=== PATIENT | female | born 1985 | race Caucasian/White ===

== ENCOUNTER 2018-05-30 16:32 | Emergency (ER) | payer OTHER, SELFPAY ==
[2018-05-30 16:48] VITALS: BP 124/81; PULSE 75; RESP 18; TEMP 36.6; O2SAT 99
--- NOTE | 2018-05-31 11:16 | PDOC.ERCMPRO ---
Care Management Progress Note 05/31-Jessy left without being seen on 05/30 at 1736. This CM called Jessy at 11:15, 05/31 and left a voice message with this CM's contact information for her to call back for assistance.
== END 2018-05-30 17:36 ==
LOC: ER 17:15
PROVIDERS: Emergency Provider Physician Assistant; PCP Neuromusculoskeletal Medicine & OMM
DX: K08.89 Other specified disorders of teeth and supporting structures (principal); Z53.21 Procedure and treatment not carried out due to patient leaving prior to being seen by health care provider

== ENCOUNTER 2018-07-21 13:59 | Emergency (ER) | payer OTHER, SELFPAY ==
[2018-07-21 14:03] VITALS: BP 122/76; PULSE 78; RESP 20; TEMP 36.9; O2SAT 99
--- NOTE | 2018-07-21 15:16 | ED.GENADUL_ITS ---
Discharge Plan Disposition Patient Disposition: HOME Condition: Good Discharge Details Chief Complaint: RashLesion Clinical Impression: Cyst of face Primary Care Provider: Kenneth Lincoln ED Provider: Kirk Oconnell Home Meds and New Rx's Prescriptions: Continued valacyclovir [Valtrex] 500 MG tablet 500 mg PO DAILY Qty: 90 RF: 3 ibuprofen 600 mg tablet 600 mg PO Q6H PRN PRN (Reason: dental pain) Qty: 30 RF: 0 acetaminophen [Tylenol] 325 MG tablet 325 - 1,300 mg PO PRN PRNRF: 0 Discontinued oxycodone-acetaminophen [Percocet] 5-325 mg tablet 1 tab PO Q8H MDD 3 PRN (Reason: pain) Qty: 10 RF: 0 Discharge Instructions Instructions: Cyst (ED) Additional Instructions: If you notice any redness, significant increase in size, fever chills you should return to emergency department for reevaluation. Otherwise contact ENT office for arrangement of follow-up appointment and further treatment of your cyst. Referrals: Brando Kyle DO [OSTEOPATHIC DOCTOR] - (Please call the office for arrangement of follow-up appointment. ) Kenneth Lincoln [Primary Care Provider] - (As needed for reassessment) Discharge Data Discharge Date/Time-TO BE ENTERED AT DEPARTURE: 07/21/18 15:30 Medical Decision Making Patient presenting to the emergency department for chief complaint of swelling to the left bridge of her nose. Patient has what appears to be a cyst to this area but she states that she was able to express some fluid couple days ago. Patient consented to needle drainage otherwise this does not look like an abscess from what I can tell. Was cleansed with chlorhexidine and use topical freeze spray and inserted a 21-gauge needle. No fluid was able to be expressed nor did any drain afterwards. Concern for cyst that will need removal. Atte mpted to contact Dr. Kyle or his PA for arrangement of follow-up appointment but no one was available. Patient placed upon care management list for assistance of this appointment preferably next week. Return precautions were discussed HPI General Mode of arrival: ambulatory . Date/Time Provider Initiated Documentation: 07/21/18 14:01 . Limitations to Documentation: no limitations . Information obtained by: patient and RN notes reviewed . History of Present Illness 33 year old F presents to the emergency department with the chief complaint of eye swelling, Quality is described as other (denies pain), and is localized to the face. Patient started experiencing this week(s) (2) and it has been constant. No relieving factors improve symptom(s), No exacerbating factors reported . Patient did receive the following treatments prior to arrival, none Related Data Home Medications Medication Instructions Recorded Confirmed acetaminophen [Tylenol] 325 - 1,300 mg PO PRN PRN 12/31/16 07/21/18 valacyclovir [Valtrex] 500 mg PO DAILY #90 tab-cap 04/18/17 07/21/18 ibuprofen 600 mg tablet 600 mg PO Q6H PRN PRN #30 tab 05/31/18 07/21/18 Previous Rx's Medication Instructions Recorded valacyclovir [Valtrex] 500 mg PO DAILY #90 tab-cap 04/18/17 ibuprofen 600 mg tablet 600 mg PO Q6H PRN PRN #30 tab 05/31/18 Allergies Allergy/AdvReac Type Severity Reaction Status Date / Time Sulfa (Sulfonamide Allergy Intermediate hives Verified 07/21/18 14:05 Antibiotics) General Stated Complaint: RashLesion YANELY: 4 Review of Systems Constitutional Denies chills, Denies fever(s) and Denies headache(s) Eyes Denies change in vision, Denies irritation and Denies eye pain ENT Denies facial pain and Denies headache(s) Integumentary/Breasts Reports as per HPI, Denies rash and Reports skin swelling Neurologic Denies headache(s) [facility] Medical History Abnormal uterine bleeding Genital herpes Mullerian anomaly of uterus Poor dentition Raynauds phenomenon Tobacco use Surgical History Ligation of fallopian tube Social History Smoking/Tobacco Use Status: Current every day Alcohol Intake: never Drug use: Never Substance use type: does not use Do you feel safe at home: Yes Do you feel safe in your relationship?: Yes Exam Const General: cooperative, no acute distress and not ill appearing Orientation: alert, awake and oriented x3 HENMT General nose exam: nares normal and no nasal discharge Face and sinus: no fluctuance, no tenderness and other (small nodule to left medial orbit/nose) Eyes Alignment and Position: alignment normal Eyelids: eyelids normal Conjunctivae: conjunctivae normal Sclera: sclerae normal Pupils: PERRL, normal by confrontation and accommodation normal EOM: EOM intact bilaterally Resp Effort & Inspection: normal respiratory effort, able to speak in complete sentences and no respiratory distress Neuro General: alert, awake, oriented x3 and moves all extremities Course Vital Signs Temperature 36.9 C 07/21/18 14:03 Pulse 78 07/21/18 14:03 Respiratory Rate 20 07/21/18 14:03 Blood Pressure 122/76 07/21/18 14:03 Pulse Oximetry 99 07/21/18 14:03 Temperature 36.9 C 07/21/18 14:03 Temperature Source Temporal Artery Scan 07/21/18 14:03 Pulse 78 07/21/18 14:03 Respiratory Rate 20 07/21/18 14:03 Respiratory Effort Non-Labored 07/21/18 14:03 Blood Pressure 122/76 07/21/18 14:03 Blood Pressure Position Sitting 07/21/18 14:03 Pulse Oximetry 99 07/21/18 14:03 Oxygen Delivery Method Room Air 07/21/18 14:03 Oxygen Flow Rate 0 07/21/18 14:03 Pain Level 0 07/21/18 14:03
[2018-07-21 15:29] VITALS: BP 122/76; PULSE 78; RESP 20; TEMP 36.9; O2SAT 99
--- NOTE | 2018-07-24 07:36 | PDOC.ERCMPRO ---
Care Management Progress Note 07/24-Cheng PRITCHETT requested assistance with a f/u appt with Dr. Kyle (ENT) next week for facial cyst. Referral faxed to ENT this am.
== END 2018-07-21 15:30 | disposition home or self-care (01) ==
PROVIDERS: Emergency Provider Nurse Practitioner Family; PCP Neuromusculoskeletal Medicine & OMM
DX: L72.0 Epidermal cyst (principal)
CPT/HCPCS: 10160

== ENCOUNTER 2019-03-11 12:16 | Emergency (ER) | payer OTHER, SELFPAY ==
[2019-03-11 12:21] VITALS: BP 105/63; PULSE 79; RESP 16; TEMP 36.6; O2SAT 99
--- NOTE | 2019-03-11 13:16 | NUR.NOTE ---
Nursing Note: Pt decline urine . States she is unable to get because they flushed by uterine dill. Dr. Barragan informed
--- NOTE | 2019-03-11 13:33 | DI.RAD_ITS ---
EXAM: XR CHEST 2V PA LATERAL INDICATION: cough, fever, r/o pneumonia. COMPARISON: CHEST 2 VIEWS PA,LAT from 12/31/2016 TECHNIQUE: 2D digital imaging was performed. FINDINGS: Heart size is normal. The lungs are clear. An azygous lobe, a normal anatomic variant, is incidenta lly noted. No pneumothorax or rib fracture is identified. IMPRESSION: Negative chest x-ray.
--- NOTE | 2019-03-11 13:48 | NUR.NOTE ---
Nursing Note: Waiting results of xray. No new c/o
--- NOTE | 2019-03-11 13:54 | W.ED.GENAD ---
Discharge Plan Disposition Patient Disposition: HOME Condition: Stable Discharge Details Chief Complaint: RespSymp Clinical Impression: Acute bronchitis Primary Care Provider: Kenneth Lincoln ED Provider: Jennifer Barragan Home Meds and New Rx's Prescriptions: New albuterol sulfate 90 mcg/actuation aerosol powdr breath activated 2 inh IH Q4H PRN (Reason: shortness of breath or wheezing) Qty: 1 RF: 0 doxycycline hyclate 100 mg tablet 100 mg PO BID 7 Days Qty: 14 RF: 0 prednisone 20 mg tablet See Rx Instructions .ROUTE .COMPLEX Qty: 12 RF: 0 Continued ibuprofen 600 mg tablet 600 mg PO Q6H PRN PRN (Reason: dental pain) Qty: 30 RF: 0 valacyclovir [Valtrex] 500 mg tablet 500 mg PO DAILY Qty: 90 RF: 3 acetaminophen [Tylenol] 325 MG tablet 325 - 1,300 mg PO PRN PRNRF: 0 Discharge Instructions Instructions: How to Stop Smoking (ED), Acute Bronchitis (ED) Additional Instructions: Use the inhaler as needed and directed. Take the steroids until finished. If you have no relief in symptoms in the next 2 days, you can start the antibiotics. Follow-up with your primary care doctor in 1 week. Return to the emergency department with any worsening or new concerning symptoms. Discharge Data Discharge Date/Time-TO BE ENTERED AT DEPARTURE: 03/11/19 14:33 Discharge Physician: Jennifer Barragan Medical Decision Making 33-year-old female who is a tobacco smoker who presents with dry cough with burning in chest that occurs with coughing and occasional shortness of breath and wheezing. Also admits to a fever of 102 a few days ago. She appears nontoxic. Vitals within normal limits. No signs of respiratory distress. Normal ENT exam. Scattered wheezing throughout. Urine test ordered but patient states she has had a tubal ligation uterine ablation and her has had vasectomy so she declines test. Chest x-ray negative. Given neb treatment and steroids and symptoms improved. As she is a tobacco smoker, will send home with antibiotics, steroids and inhaler. Advised to follow up with the primary care doctor for re-evaluation. Usual and customary return precautions given prior to discharge. Medical Records Medical records reviewed: Yes I reviewed the patient's medical records. Imaging Data Radiologic Study: Radiologist's impression: XR Chest, 2 Views Exam date and time: 03/11/2019 12:59 PM Age: 33 years old Clinical indication: Cough TECHNIQUE: Imaging protocol: XR of the chest Views: 2 views. COMPARISON: CR CHEST 2 VIEWS PA,LAT 12/31/2016 8:31 PM FINDINGS: Lungs: Unremarkable. No consolidation. Pleural space: Unremarkable. No pleural effusion. No pneumothorax. Heart/Mediastinum: Unremarkable. No cardiomegaly. Bones/joints: Unremarkable. IMPRESSION: No acute findings. HPI General Mode of arrival: ambulatory. Date/Time Provider Initiated Documentation: 03/11/19 12:57. Limitations to Documentation: no limitations. Information obtained by: patient. History of Present Illness 33 year old F presents to the emergency department with the chief complaint of cough, fever, occasional shortness of breath, Patient started experiencing this day(s) (4) and it has been constant. No relieving factors improve symptom(s), No exacerbating factors reported . Patient notes fever/chills (tmax 102) and shortness of breath (occasional); denies headaches, loss of appetite, malaise, nausea/vomiting, rash and seizure. Patient did receive the following treatments prior to arrival, none Related Data Home Medications Medication Instructions Recorded Confirmed acetaminophen [Tylenol] 325 - 1,300 mg PO PRN PRN 12/31/16 03/11/19 ibuprofen 600 mg tablet 600 mg PO Q6H PRN PRN #30 tab 05/31/18 03/11/19 valacyclovir 500 mg tablet 500 mg PO DAILY #90 tab-cap 07/27/18 03/11/19 albuterol sulfate 2 inh IH Q4H PRN #1 each 03/11/19 doxycycline hyclate 100 mg PO BID 7 Days #14 tab 03/11/19 prednisone See Rx Instructions .ROUTE 03/11/19 .COMPLEX #12 tab Previous Rx's Medication Instructions Recorded ibuprofen 600 mg tablet 600 mg PO Q6H PRN PRN #30 tab 05/31/18 valacyclovir 500 mg tablet 500 mg PO DAILY #90 tab-cap 07/27/18 albuterol sulfate 2 inh IH Q4H PRN #1 each 03/11/19 doxycycline hyclate 100 mg PO BID 7 Days #14 tab 03/11/19 prednisone See Rx Instructions .ROUTE 03/11/19 .COMPLEX #12 tab Allergies Allergy/AdvReac Type Severity Reaction Status Date / Time Sulfa (Sulfonamide Allergy Intermediate hives Verified 03/11/19 12:27 Antibiotics) General Stated Complaint: RespSymp YANELY: 4 Review of Systems All systems reviewed & are unremarkable except as noted in HPI and below Constitutional Constitutional: Reports as per HPI, Denies chills and Reports fever(s) Eyes Eyes: Denies blurry vision ENT Ears, Nose, Mouth, and Throat: Denies dizziness, Denies sore throat and Denies throat swelling Cardiovascular Cardiovascular: Denies chest pain and Reports dyspnea Respiratory Respiratory: Denies cough and Reports dyspnea Gastrointestinal Gastrointestinal: Denies abdominal pain, Denies diarrhea and Denies vomiting Genitourinary Genitourinary: Denies hematuria and Denies dysuria Musculoskeletal Musculoskeletal: Denies back pain and Denies numbness Integumentary/Breasts Skin/Breast: Denies lesions and Denies rash Neurologic Neurologic: Denies dizziness, Denies focal weakness and Denies numbness Allergic/Immunologic Allergic/Immunologic: Denies throat swelling [facility] Medical History Abnormal uterine bleeding with anemia. 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 incidental finding on u/s for eval of AUB and anemia. Poor dentition Multiple chipped broken teeth. Raynauds phenomenon 12/31/2016 emergency room visit for discoloration of fingers. Given a preliminary diagnosis of Raynauds. Tobacco use Surgical History Ligation of fallopian tube Social History Smoking/Tobacco Use Status: Current every day Alcohol Intake: never Drug use: Never Substance use type: does not use Do you feel safe at home: Yes Do you feel safe in your relationship?: Yes Exam Const General: cooperative, healthy appearing and no acute distress HENCO Head: normal to inspection Ears: hearing grossly normal bilaterally, external ears normal and TM's normal bilaterally General nose exam: external nose normal Face and sinus: normal facial exam Mouth: oral mucosae normal Throat: uvula midline, posterior oropharynx abnormal no edema, no erythema and no exudates and no postnasal drainage Eyes General: appearance normal, both eyes and all related structures Neck Neck: normal visual inspection, no lymphadenopathy, no meningeal signs, trachea midline, supple and No submandibular swelling Resp Effort & Inspection: normal respiratory effort and able to speak in complete sentences Auscultation: wheezes scattered wheezes Cardio Rate: regular rate Rhythm: regular rhythm Skin General skin exam: no rashes or lesions noted Neuro General: alert, awake and oriented x3 Motor: muscle tone normal throughout Extrem General: normal to inspection and full ROM Psych Appearance: grossly normal Affect: normal affect Course Vital Signs Vital signs: Vital Signs Temperature 97.9 F 03/11/19 12:21 Pulse 79 03/11/19 12:21 Respiratory Rate 16 03/11/19 12:21 Blood Pressure 105/63 03/11/19 12:21 Pulse Oximetry 99 03/11/19 12:21 Temperature 97.9 F 03/11/19 12:21 Temperature Source Skin 03/11/19 12:21 Pulse 79 03/11/19 12:21 Respiratory Rate 16 03/11/19 12:21 Respiratory Effort 03/11/19 12:41 Blood Pressure 105/63 03/11/19 12:21 Blood Pressure Position Sitting 03/11/19 12:21 Pulse Oximetry 99 03/11/19 12:21 Oxygen Delivery Method Room Air 03/11/19 12:21 Oxygen Flow Rate 0 03/11/19 12:21 Pain Level 6 03/11/19 12:21
[2019-03-11] MEDS: predniSONE 20 MG TAB 60 MG PO (14:19)
[2019-03-11 14:20] VITALS: PULSE 77; RESP 1; RESP 20; O2SAT 100
[2019-03-11] MEDS: Albuterol/Ipratropium 3 ML UPD VIAL UPD (14:20)
--- NOTE | 2019-03-11 14:28 | DI.VRAD_ITS ---
PROCEDURE INFORMATION: Exam: XR Chest, 2 Views Exam date and time: 03/11/2019 12:59 PM Age: 33 years old Clinical indication: Cough TECHNIQUE: Imaging protocol: XR of the chest Views: 2 views. COMPARISON: CR CHEST 2 VIEWS PA,LAT 12/31/2016 8:31 PM FINDINGS: Lungs: Unremarkable. No consolidation. Pleural space: Unremarkable. No pleural effusion. No pneumothorax. Heart/Mediastinum: Unremarkable. No cardiomegaly. Bones/joints: Unremarkable. IMPRESSION: No acute findings. Dictated and Authenticated by: Chong Mart MD. Ordering:RAFAEL Rodriguez MD
[2019-03-11 14:30] VITALS: PULSE 79; RESP 20; O2SAT 100
== END 2019-03-11 14:33 | disposition home or self-care (01) ==
PROVIDERS: Emergency Provider Physician Assistant; PCP Neuromusculoskeletal Medicine & OMM
DX: J20.9 Acute bronchitis, unspecified (principal); R06.02 Shortness of breath; F17.210 Nicotine dependence, cigarettes, uncomplicated
CPT/HCPCS: 94640; 99283; 71046; J7512; J7620

== ENCOUNTER 2020-09-26 20:55 | Emergency (ER) | payer OTHER, SELFPAY ==
[2020-09-26 21:05] VITALS: TEMP 36.7; O2SAT 98
--- NOTE | 2020-09-26 21:15 | DI.RAD_ITS ---
Exam(s) XR CHEST 2V PA LATERAL EXAM: XR CHEST 2V PA LATERAL CLINICAL HISTORY: Cough, Congestion, R/O [place] TECHNIQUE: 2D digital imaging was performed. COMPARISON: No exams were available for comparison FINDINGS: MEDIASTINUM: Normal. HEART: Normal. PULMONARY VASCULATURE: Normal. LUNGS: Clear. PLEURAL SPACE: No pleural effusion or pneumothorax. BONE:Within normal limits for the patient's age. OTHER FINDINGS:Normal. IMPRESSION: No acute pulmonary findings. DATA REPOSITORY: RADIATION DOSE DELIVERED:
--- NOTE | 2020-09-26 21:19 | W.ED.GENAD ---
Discharge Plan Disposition Patient Disposition: HOME Condition: Stable Discharge Details Clinical Impression: URI with cough and congestion Primary Care Provider: Kenneth Lincoln ED Provider: Kayley Mitchell Home Meds and New Rx's Prescriptions: New benzonatate [Tessalon Perles] 100 mg capsule 100 mg PO BID-TID PRN (Reason: cough) Qty: 10 RF: 0 Discharge Instructions Instructions: Upper Respiratory Infection (ED) Additional Instructions: Gargle with warm salt water up to 3 times daily as needed for sore throat. Chest x-ray shows no evidence for pneumonia at this time. Take Tessalon Perles 2-3 times a day as needed for cough. A prescription was sent to the pharmacy we have on file for you. Follow up with primary care provider in 3-5 days. Return to ED sooner if any worsening or concerns. Increase oral fluids. Please take Tylenol or Ibuprofen with food every 4-6 hours as needed for pain and swelling. At this time the Covid swab is pending. Please quarantine the next 7 days while having symptoms or obtaining a negative Covid test. Stand Alone Forms: PENDING COVID-19 TESTING Referrals: Kenneth Lincoln [Primary Care Provider] - Medical Decision Making 35-year-old female presents to the ER with chief complaint of cough congestion, sore throat hot and cold and vomiting since Tuesday. Patient reports diarrhea began today. Patient denies productive cough denies any sick contacts. She is vaccinated for Covid. She reports having a history of asthma as a child. Past medical history includes Raynaud's, poor dentition, abnormal uterine bleeding and tubal ligation. She has been every day smoker denies any drugs Chest x-ray, strep swab, send out Covid test ordered at this time. We will give Zofran ODT and trial oral fluids. Imaging protocol: XR of the chest. Views: 2 views. COMPARISON: CR XR CHEST 2V PA LATERAL 03/11/2019 1:33 PM FINDINGS: Lungs: Unremarkable. No consolidation. Pleural spaces: Unremarkable. No pleural effusion. No pneumothorax. Heart/Mediastinum: Unremarkable. No cardiomegaly. Bones/joints: Unremarkable. IMPRESSION: No acute findings. Rapid strep swab negative, Covid is pending at this time. I do suspect viral URI. Discussed findings with patient and follow-up with PCP. Patient verbalized understanding. This text was generated using [employer] system, please disregard any oddities of phrase or misspellings. HPI General Mode of arrival: ambulatory. Date/Time Provider Initiated Documentation: 09/26/20 21:18. Limitations to Documentation: no limitations. Information obtained by: patient and RN notes reviewed. HPI Narrative: 35-year-old female presents to the ER with chief complaint of cough congestion, sore throat hot and cold and vomiting since Tuesday. Patient reports diarrhea began today. Patient denies productive cough denies any sick contacts. She is vaccinated for Covid. She reports having a history of asthma as a child. Past medical history includes Raynaud's, poor dentition, abnormal uterine bleeding and tubal ligation. She has been every day smoker denies any drugs Related Data Home Medications Medication Instructions Recorded Confirmed benzonatate [Tessalon Perles] 100 mg PO BID-TID PRN #10 cap 09/26/20 Previous Rx's Medication Instructions Recorded benzonatate [Tessalon Perles] 100 mg PO BID-TID PRN #10 cap 09/26/20 Allergies Allergy/AdvReac Type Severity Reaction Status Date / Time Sulfa (Sulfonamide Allergy Intermediate hives Verified 09/26/20 21:20 Antibiotics) General Stated Complaint: RespSymp YANELY: 4 Review of Systems Narrative: Constitutional: Negative for weight loss, alert and oriented, well groomed, normal body habitus, appears comfortable. Positive fatigue. HEENT: Denies trauma, blurry vision, nasal discharge, trouble swallowing. Positive headache, sore throat. Chest: Denies chest pain, palpitations, irregular rhythm, hypertension. Respiratory: Denies Shortness of breath, hemoptysis. Positive cough nonproductive. GI: Denies abdominal pain, nausea, vomiting, diarrhea, constipation. : Denies dysuria, hematuria, flank pain, rectal bleeding. Neuro: Denies dizziness, blurry vision, weakness, syncope, or facial numbness. Hematologic: Denies easy bruising, intolerance to heat or cold, hair loss. [facility] Medical History (Updated 09/26/20 @ 22:52 by Kayley Mitchell) Abnormal uterine bleeding with anemia. 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 incidental finding on u/s for eval of AUB and anemia. Poor dentition Multiple chipped broken teeth. Raynauds phenomenon 12/31/2016 emergency room visit for discoloration of fingers. Given a preliminary diagnosis of Raynauds. Tobacco use 06/05/2019 Rx for Chantix starter pack. Surgical History Ligation of fallopian tube Social History Smoking/Tobacco Use Status: Current every day Smoking risk assessment performed?: Yes Alcohol Intake: never Drug use: Never Substance use type: does not use Do you feel safe at home: Yes Do you feel safe in your relationship?: Yes Exam Narrative Exam Narrative: Constitutional: Alert and oriented x3. Appears stated age. Normal body habitus. Head: Normocephalic, no trauma. Eyes: Pupils PERRLA, Red reflex noted, EOM's intact. Eyelids symmetrical without lesions, discharge, or swelling. ENT: Bilateral TM's WNL, External ear normal to inspection, no mastoid TTP, swelling, or erythema, Nasal turbinates WNL, no nasal discharge. Normal dentition, Posterior pharynx erythemic, tonsils 2+ bilaterally uvula midline, no exudate. Chest: RRR, Normal S1, S2, distal pulses intact. Resp: Lungs clear to auscultation bilaterally, no wheezes, rales, or rhonchi. Abdomen: Soft nontender to palpation. Nondistended Musculoskeletal: Normal gait, 5/5 strength to all four extremities. Skin: No suspicious rashes or lesions. Capillary refill less than 2 sec. Neurologic: Cranial nerves II-XII intact. Alert and oriented x 3. Hematologic/Lymphatic: No ecchymosis, no lymphadenopathy. Course Vital Signs Vital signs: Vital Signs Temperature 36.7 C 09/26/20 21:05 Pulse Oximetry 98 09/26/20 21:05 Temperature 36.7 C 09/26/20 21:05 Temperature Source Skin 09/26/20 21:05 Pulse Oximetry 98 09/26/20 21:05 Oxygen Delivery Method Room Air 09/26/20 21:05 Oxygen Flow Rate 0 09/26/20 21:05
[2020-09-26] MEDS: Ondansetron O.D.T. 4 MG TABEF PO (22:24)
--- NOTE | 2020-09-26 22:41 | DI.VRAD_ITS ---
PROCEDURE INFORMATION: Exam: XR Chest Exam date and time: 09/26/2020 9:32 PM Age: 35 years old Clinical indication: Other: Cough, congestion, R/O pneumonia TECHNIQUE: Imaging protocol: XR of the chest. Views: 2 views. COMPARISON: CR XR CHEST 2V PA LATERAL 03/11/2019 1:33 PM FINDINGS: Lungs: Unremarkable. No consolidation. Pleural spaces: Unremarkable. No pleural effusion. No pneumothorax. Heart/Mediastinum: Unremarkable. No cardiomegaly. Bones/joints: Unremarkable. IMPRESSION: No acute findings. Dictated and Authenticated by: Ken Lundy MD. Ordering:YAO Zaldivar MD
[2020-09-26] MEDS: Benzonatate 100 MG CAP PO (22:59)
[2020-09-26 23:00] VITALS: BP 98/50; PULSE 66; RESP 16; O2SAT 98
[2020-09-26] MEDS: Ondansetron O.D.T. 4 MG TABEF, 3 TABS/BTL PO (23:03)
[2020-09-28 10:36] LABS: COVID-19 RT-PCR UVMMC Result Negative (Negative)
== END 2020-09-26 23:10 | disposition home or self-care (01) ==
PROVIDERS: Emergency Provider Registered Nurse Emergency; PCP Neuromusculoskeletal Medicine & OMM
DX: J06.9 Acute upper respiratory infection, unspecified (principal); Z20.822 Contact with and (suspected) exposure to COVID-19
CPT/HCPCS: 87880; 99283; U0003; 71046

== ENCOUNTER 2020-10-10 20:05 | Outpatient (REF) | payer OTHER, SELFPAY | END 2020-10-10 20:06 | disposition home or self-care (01) | LOC: LBN 20:05 | PROVIDERS: PCP Neuromusculoskeletal Medicine & OMM; Visit Provider Physician Assistant Medical | DX: R30.0 Dysuria (principal) | CPT/HCPCS: 87086 ==

== ENCOUNTER 2021-12-26 20:02 | Emergency (ER) | payer OTHER, SELFPAY ==
[2021-12-26 20:21] VITALS: BP 121/69; PULSE 89; RESP 18; TEMP 36.6; O2SAT 98
--- NOTE | 2021-12-26 20:28 | DI.RAD_ITS ---
Exam(s) XR SHOULDER LT COMPLETE 2+V EXAM: XR SHOULDER LT COMPLETE 2+V CLINICAL HISTORY: left shoulder pain. TECHNIQUE: 2D digital imaging was performed. COMPARISON: CR,XR XR CHEST 2V PA LATERAL from 09/26/2020 FINDINGS: Five views: No evidence of fracture nor dislocation no abnormal soft tissue calcifications. Subacromial space ap pears unremarkable. There are no degenerative changes in the glenohumeral and AC joints. No os acro miale. IMPRESSION: No significant osseous findings in the left shoulder. DATA REPOSITORY: RADIATION DOSE DELIVERED:
--- NOTE | 2021-12-26 20:29 | ED.GENADUL_ITS ---
Discharge Plan Disposition Patient Disposition: HOME Condition: Good Discharge Details Clinical Impression: Acute pain of left shoulder Primary Care Provider: Kenneth Lincoln ED Provider: Darrel Harris Home Meds and New Rx's Prescriptions: New lidocaine [Lidoderm] 5 % adhesive patch,medicated 1 patch Topical Q24H Qty: 15 0RF No Action valacyclovir [Valtrex] 500 mg tablet 500 mg PO DAILY PRN Discharge Instructions Instructions: Shoulder Pain (ED) Additional Instructions: At this time there is no evidence of significant fracture or dislocation on your x-ray. It does appear that there may have been a mild dislocation earlier but not now. Maximum doses for Tylenol and Motrin are 1000 mg of Tylenol every 6 hours and 800 mg of Motrin every 6 hours. Please use the Lidoderm patches as directed. A prescription has been sent to your pharmacy. Please avoid any aggressive use for your left shoulder for the next few weeks. Ice it frequently. If you have persistent pain after 4 to 6 weeks if you notice any worsening of your symptoms, or any new symptoms such as vomiting, diarrhea, fever, chills, shortness of breath, chest pain, numbness, weakness, or fainting , please return immediately to the emergency department for reevaluation. Please follow up with your primary care provider as soon as possible for reassessment and reevaluation. As always, it was a pleasure participating in your medical care today. Referrals: Kenneth Lincoln [Primary Care Provider] - Medical Decision Making 36-year-old female with no significant past medical history except for uterine ablation, presents today for evaluation of left shoulder pain. 5 days ago the patient fell and landed on her left shoulder. She heard a pop at that time. Is pretty severe pain at that moment, but it improved over the next hour or so. However over the last 4 days it is gradually increased every day. Pain is made worse with movement. She has been taking Tylenol and Motrin without any significant improvement. She does admit to tingling in the tips of her 5 fingers, and a tingling that goes down her left lateral arm. She denies any numbness though. She denies any chest pain, headache or neck pain. No other complaints at this time. No other modifying factors. Exam demonstrates mild tenderness of the proximal/end of the humerus. Pain with posterior movement and abduction. No severe pain with internal and external rotation. Good sensation throughout, despite subjective tingling. Patient demonstrates surprisingly excellent independent movement of the arm, with no clinical evidence of dislocation or clear evidence of significant fracture. Hoffman spect mild bony bruising, potential bursitis, and less likely fracture. We will get an x-ray to rule out fracture. Will monitor closely and reassess and give a Lidoderm patch. 10:22 PM X-ray shows evidence of some mild flattening and sclerosis of the lateral aspect of the humeral head could indicate an old Hill-Sachs deformity. Clinically the patient looks well otherwise. She will be discharged. Recommend that if she still has continued pain over 4 to 6 weeks and she will likely need orthopedic follow-up. Recommend continued Tylenol, Motrin, Lidoderm patch. Discussed red flags which to return. I have extensively reviewed the treatment plan and discharge instructions with the patient. I have addressed all patient concerns at this time. The patient was made aware of what symptoms to monitor for that would warrant a return to the emergency department. Discussed the plan with the patient, they demonstrate verbal understanding and agreement with our assessment and plan at this time. The documentation in this chart was dictated using Snappy shuttle dictation software. Please excuse any dictation errors. FINDINGS: Bones/joints: No dislocation is identified. There is some mild flattening and sclerosis to the lateral aspect of the humeral head which could indicate an old Hill-Sachs deformity. Clinical correlation recommended. Soft tissues: No unusual soft tissue calcifications. IMPRESSION: 1. Some mild flattening and sclerosis to the lateral aspect of the humeral head which could indicate an old Hill-Sachs deformity. Clinical correlation recommended. If symptoms remain concerning, CT scan or MRI could be obtained. Thank you for allowing us to participate in the care of your patient. Dictated and Authenticated by: Janna Dickson MD 12/26/2021 10:10 PM Eastern Time ([place] & [place]) HPI General Date/Time Provider Initiated Documentation: 12/26/21 20:04 . HPI Narrative: 36-year-old female with no significant past medical history except for uterine ablation, presents today for evaluation of left shoulder pain. 5 days ago the patient fell and landed on her left shoulder. She heard a pop at that time. Is pretty severe pain at that moment, but it improved over the next hour or so. However over the last 4 days it is gradually increased every day. Pain is made worse with movement. She has been taking Tylenol and Motrin without any significant improvement. She does admit to tingling in the tips of her 5 fingers, and a tingling that goes down her left lateral arm. She denies any numbness though. She denies any chest pain, headache or neck pain. No other complaints at this time. No other modifying factors. Related Data Home Medications Medication Instructions Recorded Confirmed valacyclovir 500 mg tablet 500 mg PO DAILY PRN 03/18/21 12/26/21 (Valtrex) lidocaine 5 % topical patch 1 patch topical Q24H #15 ea 12/26/21 (Lidoderm) Previous Rx's Medication Instructions Recorded lidocaine 5 % topical patch 1 patch topical Q24H #15 ea 12/26/21 (Lidoderm) Allergies Allergy/AdvReac Type Severity Reaction Status Date / Time Sulfa (Sulfonamide Allergy Intermediate hives Verified 12/26/21 20:29 Antibiotics) General Stated Complaint: Orthopedic YANELY: 4 Review of Systems All systems reviewed & are unremarkable except as noted in HPI and below PFSH All Active Problems (Updated 12/26/21 @ 22:04 by Darrel Harris DO) Acute pain of left shoulder (Acute) URI with cough and congestion (Acute) Medical History Abnormal uterine bleeding with anemia. 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 incidental finding on u/s for eval of AUB and anemia. Poor dentition Multiple chipped broken teeth. Raynauds phenomenon 12/31/2016 emergency room visit for discoloration of fingers. Given a preliminary diagnosis of Raynauds. Surgical History Ligation of fallopian tube Social History Smoking/Tobacco Use Status: Former Tobacco Use Smoking risk assessment performed?: Yes Alcohol Intake: never Drug use: Never Substance use type: does not use Do you feel safe at home: Yes Do you feel safe in your relationship?: Yes Exam Narrative Exam Narrative: 1.Const: Well-nourished, Well-developed, appearing stated age 2.Eyes: PERRL, no conjunctival injection, and symmetrical lids. 3.ENT: Atraumatic external nose and ears. Moist MM. Neck: Symmetric, trachea mid line, No thyromegaly. 4.CVS: +S1/S2, No murmurs or gallops. Peripheral pulses 2+ and equal in all extremities. Brisk capillary refill in all extremities. 5.RESP: Unlabored respiratory effort. Clear to auscultation bilaterally. No wheezes rales or rhonchi 6.GI: Soft, Nontender/Nondistended, No hepatosplenomegaly. No guarding or rebound. 7.MSK: Normocephalic/Atraumatic, Extremities w/o deformity. No cyanosis or clubbing, Left shoulder demonstrates a very small amount of bruising on the anterior aspect. No gross deformity. Mild tenderness over the proximal shaft and head of the humerus. Patient is actively able to move her arm in all directions without any assistance. She demonstrates good hospital receptionist strength, good flexion at the elbow, good external and internal rotation, excellent anterior and posterior movement, and good abduction and adduction. Pain is most present with posterior movement, and abduction. 8.Skin: Warm, Dry. No rashes or lesions. 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 Sensation grossly intact, no focal neurologic deficits. Patient demonstrates good two-point discrimination for her fingers. Brisk capillary refill is noted. 10.Psych: (AAO) x3. Appropriate mood and affect Course Vital Signs Vital signs: Vital Signs Temperature 36.6 C 12/26/21 20:21 Pulse 89 12/26/21 20:21 Respiratory Rate 18 12/26/21 20:21 Blood Pressure 121/69 12/26/21 20:21 Pulse Oximetry 98 12/26/21 20:21 Temperature 36.6 C 12/26/21 20:21 Pulse 89 12/26/21 20:21 Respiratory Rate 18 12/26/21 20:21 Blood Pressure 121/69 12/26/21 20:21 Blood Pressure Position Sitting 12/26/21 20:21 Pulse Oximetry 98 12/26/21 20:21 Oxygen Delivery Method Room Air 12/26/21 20:21 Oxygen Flow Rate 0 12/26/21 20:21 Pain Level 8 12/26/21 20:21
[2021-12-26] MEDS: Lidocaine 5% Patch 1 PATCH TP (20:37)
--- NOTE | 2021-12-26 22:11 | DI.VRAD_ITS ---
PROCEDURE INFORMATION: Exam: XR Left Shoulder Exam date and time: 12/26/2021 9:36 PM Age: 36 years old Clinical indication: Patient HX: Left shoulder pain TECHNIQUE: Imaging protocol: Radiologic exam of the Left shoulder. Views: 2 or more views. COMPARISON: CR XR CHEST 2V PA LATERAL 09/26/2020 10:20 PM FINDINGS: Bones/joints: No dislocation is identified. There is some mild flattening and sclerosis to the lateral aspect of the humeral head which could indicate an old Hill-Sachs deformity. Clinical correlation recommended. Soft tissues: No unusual soft tissue calcifications. IMPRESSION: 1. Some mild flattening and sclerosis to the lateral aspect of the humeral head which could indicate an old Hill-Sachs deformity. Clinical correlation recommended. If symptoms remain concerning, CT scan or MRI could be obtained. Dictated and Authenticated by: Janna Dickson MD. Ordering:MONSE Rojo MD
== END 2021-12-26 22:27 | disposition home or self-care (01) ==
PROVIDERS: Emergency Provider Student in an Organized Health Care Education/Training Program; PCP Neuromusculoskeletal Medicine & OMM
DX: G89.11 Acute pain due to trauma (principal); M25.512 Pain in left shoulder; Z87.891 Personal history of nicotine dependence; W19.XXXA Unspecified fall, initial encounter; X50.1XXA Overexertion from prolonged static or awkward postures, initial encounter
CPT/HCPCS: 99283; 73030; 99284

== ENCOUNTER → 2022-02-26 00:13 | Outpatient (CLI) | payer OTHER, SELFPAY ==
--- NOTE | 2022-02-26 | DI.MRI_ITS ---
Exam(s) MR UPPER JOINT LT WO EXAM: MR UPPER JOINT LT WO CLINICAL HISTORY: LT SHOULDER PAIN, H/O INJURY, M25.512. TECHNIQUE: Multiplanar multisequence MRI was performed. COMPARISON: CR,XR XR SHOULDER LT COMPLETE 2+V from 12/26/2021 FINDINGS: BONES: There is no fracture or contusion pattern. There is a small subchondral cyst in the humeral he ad. JOINTS: The acromioclavicular joint is normal. The glenohumeral joint is normal. TENDONS: Supraspinatus: Unremarkable. Infraspinatus: Unremarkable. Subscapularis: There is hyperintense signal seen in the subscapularis tendon at its insertion site co nsistent with a partial intrasubstance tear. [place]: Unremarkable. Biceps and [place]: Unremarkable. MUSCLES: Unremarkable. GLENOID LABRUM: Unremarkable on this noncontrast examination. SOFT TISSUES: Unremarkable. LIGAMENTS: Unremarkable. OTHER: There is a trace amount of fluid in the subacromial subdeltoid bursa. IMPRESSION: Partial tear of the subscapularis tendon at its insertion site. DATA REPOSITORY:
== END ==
PROVIDERS: PCP Neuromusculoskeletal Medicine & OMM; Visit Provider Nurse Practitioner Family
DX: M25.512 Pain in left shoulder (principal); S46.812A Strain of other muscles, fascia and tendons at shoulder and upper arm level, left arm, initial encounter; X58.XXXA Exposure to other specified factors, initial encounter
CPT/HCPCS: 73221

== ENCOUNTER 2022-07-24 19:23 | Emergency (ER) | payer OTHER, SELFPAY ==
[2022-07-24 19:43] VITALS: BP 108/64; PULSE 89; RESP 16; TEMP 36.4; O2SAT 98
--- NOTE | 2022-07-24 19:57 | W.ED.GENAD ---
Discharge Plan Disposition Patient Disposition: Home Condition: Good Discharge Details Clinical Impression: Abdominal wall cellulitis Primary Care Provider: Kenneth Lincoln ED Provider: Darrel Harris Home Meds and New Rx's Prescriptions: New cephalexin 500 mg capsule 500 mg PO QID 7 Days Qty: 28 0RF Discharge Instructions Instructions: Cellulitis (ED) Additional Instructions: At this time you have evidence of cellulitis. There is a chance that this may be secondary to a tick bite. You have been given the initial dose of doxycycline. Please take the Keflex as directed. The prescription has been sent to your pharmacy. If you notice any worsening of your symptoms, or any new symptoms such as spreading redness, vomiting, diarrhea, fever, chills, shortness of breath, chest pain, numbness, weakness, or fainting , please return immediately to the emergency department for reevaluation. Please follow up with your primary care provider as soon as possible for reassessment and reevaluation. As always, it was a pleasure participating in your medical care today. Referrals: Kenneth Lincoln [Primary Care Provider] - Medical Decision Making 37-year-old female with no significant past medical history who presents today for evaluation of a small red lesion on her lower abdomen. Is been present for the last day or so. She is uncertain what brought it on. She is uncertain if she received a tick bite. She does not recall seeing any tick in the area. The area was mildly tender, had a small amount of pus that did drain. She denies any fever or chills. No other complaints at this time. She does work in the outdoors. No other lesions. No other complaints. Exam demonstrates evidence of mild cellulitis/folliculitis in the left lower abdomen. No evidence of abscess. No evidence of erythema migrans. Doubt tick bite/Lyme disease. However due to the current season in nature of her work we will treat with a prophylactic dose of 200 mg of doxycycline. We will give 7 days of Keflex for treatment of cellulitis. Discussed red flags for which to return. I have extensively reviewed the treatment plan and discharge instructions with the patient. I have addressed all patient concerns at this time. The patient was made aware of what symptoms to monitor for that would warrant a return to the emergency department. Discussed the plan with the patient, they demonstrate verbal understanding and agreement with our assessment and plan at this time. The documentation in this chart was dictated using [employer] dictation software. Please excuse any dictation errors. HPI General Date/Time Provider Initiated Documentation: 07/24/22 19:42. HPI Narrative: 37-year-old female with no significant past medical history who presents today for evaluation of a small red lesion on her lower abdomen. Is been present for the last day or so. She is uncertain what brought it on. She is uncertain if she received a tick bite. She does not recall seeing any tick in the area. The area was mildly tender, had a small amount of pus that did drain. She denies any fever or chills. No other complaints at this time. She does work in the outdoors. No other lesions. No other complaints. Related Data Home Medications Medication Instructions Recorded Confirmed cephalexin 500 mg capsule 500 mg PO QID 7 days #28 caps 07/24/22 Previous Rx's Medication Instructions Recorded cephalexin 500 mg capsule 500 mg PO QID 7 days #28 caps 07/24/22 Allergies Allergy/AdvReac Type Severity Reaction Status Date / Time Sulfa (Sulfonamide Allergy Intermediate hives Verified 07/24/22 19:52 Antibiotics) General Stated Complaint: Cellulitis YANELY: 4 Review of Systems All systems reviewed & are unremarkable except as noted in HPI and below PFSH All Active Problems Abdominal wall cellulitis (Acute) Dislocation of shoulder, left, closed (Acute 12/22/21) Left rotator cuff tear (Acute 12/22/21) Asthma (Chronic) URI with cough and congestion (Acute) Medical History Abnormal uterine bleeding with anemia. 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 incidental finding on u/s for eval of AUB and anemia. Poor dentition Multiple chipped broken teeth. Raynauds phenomenon 12/31/2016 emergency room visit for discoloration of fingers. Given a preliminary diagnosis of Raynauds. Surgical History Ligation of fallopian tube Social History Smoking/Tobacco Use Status: Former Tobacco Use Smoking risk assessment performed?: Yes Alcohol Intake: never Drug use: Never Substance use type: does not use Current gender identity: female Do you feel safe at home: Yes Do you feel safe in your relationship?: Yes Exam Narrative Exam Narrative: 1.Const: Well-nourished, Well-developed, appearing stated age 2.Eyes: PERRL, no conjunctival injection, and symmetrical lids. 3.ENT: Atraumatic external nose and ears. Moist MM. Neck: Symmetric, trachea midline, No thyromegaly. 4.CVS: +S1/S2, No murmurs or gallops. Peripheral pulses 2+ and equal in all extremities. Brisk capillary refill in all extremities. 5.RESP: Unlabored respiratory effort. Clear to auscultation bilaterally. No wheezes rales or rhonchi 6.GI: Soft, Nontender/Nondistended, No hepatosplenomegaly. No guarding or rebound. 7.MSK: Normocephalic/Atraumatic, Extremities w/o deformity or ttp No cyanosis or clubbing, Normal movement of all extremities 8.Skin: Warm, Dry. Exam demonstrates a small area of folliculitis in the left lower abdomen. Diameter is roughly 1.5 cm for the erythema. No fluctuance. No palpable abscess. Minimal induration right at the head. No evidence of erythema migrans. Negative Nikolsky sign. No large vesicles or bulla. No palpable purpura. No oral lesions. No mucosal lesions. No evidence of severe cellulitis. No evidence of vaccine preventable rash. 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 Sensation grossly intact, no focal neurologic deficits. 10.Psych: (AAO) x3. Appropriate mood and affect Course Vital Signs Vital signs: Vital Signs Temperature 36.4 C 07/24/22 19:43 Pulse 89 07/24/22 19:43 Respiratory Rate 16 07/24/22 19:43 Blood Pressure 108/64 07/24/22 19:43 Pulse Oximetry 98 07/24/22 19:43 Temperature 36.4 C 07/24/22 19:43 Temperature Source Oral 07/24/22 19:43 Pulse 89 07/24/22 19:43 Respiratory Rate 16 07/24/22 19:43 Respiratory Effort Normal 07/24/22 19:52 Blood Pressure 108/64 07/24/22 19:43 Blood Pressure Position Sitting 07/24/22 19:43 Pulse Oximetry 98 07/24/22 19:43 Oxygen Delivery Method Room Air 07/24/22 19:43 Oxygen Flow Rate 0 07/24/22 19:43
[2022-07-24] MEDS: Cephalexin 500 MG CAP, 4 CAPS/BTL PO (20:04)
[2022-07-24] MEDS: Doxycycline Hyclate 100 MG CAP 200 MG PO (20:04)
== END 2022-07-24 20:10 | disposition home or self-care (01) ==
PROVIDERS: Emergency Provider Student in an Organized Health Care Education/Training Program; PCP Neuromusculoskeletal Medicine & OMM
DX: L03.311 Cellulitis of abdominal wall (principal)
CPT/HCPCS: 99283

== ENCOUNTER 2024-03-09 15:59 | Outpatient (REF) | payer OTHER, SELFPAY | END 2024-03-09 16:00 | disposition home or self-care (01) | LOC: LBN 15:59 | PROVIDERS: PCP Neuromusculoskeletal Medicine & OMM; Visit Provider Obstetrics & Gynecology | DX: N93.8 Other specified abnormal uterine and vaginal bleeding (principal); Z98.890 Other specified postprocedural states | CPT/HCPCS: 87086 ==

== ENCOUNTER 2024-04-23 15:55 | Outpatient (REF) | payer OTHER, SELFPAY ==
[2024-04-25 12:55] LABS: GC Result Negative (Negative)
[2024-04-25 12:56] LABS: Specimen Description VAGINAL
[2024-04-25 13:00] LABS: Chlamydia Result Positive (Negative)
== END 2024-04-23 15:56 | disposition home or self-care (01) ==
LOC: LBN 15:55
PROVIDERS: PCP Neuromusculoskeletal Medicine & OMM; Visit Provider Obstetrics & Gynecology
DX: N89.8 Other specified noninflammatory disorders of vagina (principal)
CPT/HCPCS: 87491; 87591; 88142; 87480; 87510; 87624; 87660

== ENCOUNTER 2024-05-21 17:13 | Outpatient (REF) | payer OTHER, SELFPAY ==
--- NOTE | 2024-05-21 16:00 | ENDO_PTH ---
PATIENT: Jessy Marie LOC: [facility] U#:[id number] AGE/SX: 39/F ROOM: RE05/21/[address]: Chapis Shah DO : 1985 BED: DIS: 05/21/2024 SPEC #: [id number] RECD: 05/21/24 17:56 STATUS: CHRIS REQ #: [id number] KATIE: 05/21/24 16:[address]: Chapis Shah DEPT: Surgical Specimen RECD BY: Elise Arriaga ENTERED: 05/21/24 17:57 SP TYPE: Endo OTHR DR: Kenneth Lincoln Tissues: 1 - ENDOCERVICAL BX/CURRETTE Procedures: GROSS AND MICRO LEVEL 4 Comments: [id number]
== END 2024-05-21 17:14 | disposition home or self-care (01) ==
LOC: LBN 17:13
PROVIDERS: PCP Neuromusculoskeletal Medicine & OMM; Visit Provider Obstetrics & Gynecology
DX: N89.8 Other specified noninflammatory disorders of vagina (principal); R87.610 Atypical squamous cells of undetermined significance on cytologic smear of cervix (ASC-US); R87.810 Cervical high risk human papillomavirus (HPV) DNA test positive
CPT/HCPCS: 88305; 87480; 87510; 87660

== ENCOUNTER 2024-10-30 14:51 | Outpatient (REF) | payer OTHER, SELFPAY ==
[2024-10-31 12:14] LABS: Chlamydia Result Negative (Negative); GC Result Negative (Negative)
== END 2024-10-30 14:52 | disposition home or self-care (01) ==
LOC: LBN 14:51
PROVIDERS: PCP Neuromusculoskeletal Medicine & OMM; Visit Provider Obstetrics & Gynecology
DX: N89.8 Other specified noninflammatory disorders of vagina (principal)
CPT/HCPCS: 87491; 87591; 87480; 87510; 87660